=== PATIENT | female | born 1970 | race Caucasian/White ===

== ENCOUNTER → 2017-05-05 | Outpatient (REF) | payer BC | LOC: M SFHCPLAZ 12:59 | DX: Z22.321 Carrier or suspected carrier of Methicillin susceptible Staphylococcus aureus (principal) | CPT/HCPCS: 87077; 87186 ==

== ENCOUNTER 2018-02-01 08:49 | Emergency (ER) | payer BC ==
[2018-02-01] MEDS: LevoFLOXacin 500 MG TABLET PO (09:23)
== END 2018-02-01 09:23 | disposition home or self-care (01) ==
LOC: M ED 08:49
DX: J34.0 Abscess, furuncle and carbuncle of nose (principal); L03.211 Cellulitis of face; A49.01 Methicillin susceptible Staphylococcus aureus infection, unspecified site; I10 Essential (primary) hypertension; K21.9 Gastro-esophageal reflux disease without esophagitis; Z86.14 Personal history of Methicillin resistant Staphylococcus aureus infection; Z79.899 Other long term (current) drug therapy; Z79.4 Long term (current) use of insulin
CPT/HCPCS: 99283

== ENCOUNTER → 2018-02-12 | Outpatient (REF) | payer BC ==
[2018-02-12 12:09] LABS: BASO % 0.6 % (0.0-1.0); EOS # 0.3 10^3/uL (0.0-0.50); HEMATOCRIT 38.2 % (36.0-47.0); HEMOGLOBIN 13.3 g/dl (12.0-15.5); IMMATURE GRANULOCYTE % 0.3 % (0-3.0); LYMPH % 30.2 % (24.0-44.0); MEAN CORPUSCULAR HEMOGLOBIN 29.8 pg (27.0-33.0); MEAN CORPUSCULAR HGB CONC 34.8 g/dl (32.0-36.5); MEAN CORPUSCULAR VOLUME 85.5 fl (80.0-96.0); MONO # 0.5 10^3/uL (0.0-0.8); MONO % 6.9 % (0.0-5.0); NEUTROPHILS # 3.9 10^3/uL (1.8-7.7); PLATELET COUNT, AUTOMATED 230 10^3/uL (150-450); RED BLOOD COUNT 4.47 10^6/uL (4.00-5.40); RED CELL DISTRIBUTION WIDTH 12.7 % (11.5-14.5); WHITE BLOOD COUNT 6.7 10^3/uL (4.0-10.0)
[2018-02-12 12:10] LABS: C REACTIVE PROTEIN QUANTITATIV 1.24 MG/DL (0.00-0.30)
[2018-02-12 12:36] LABS: ERYTHROCYTE SEDIMENTATION RATE 13 mm/hr (0-20)
[2018-02-13 15:08] LABS: CONTROL LINE MONO RF C INT CTR LINE PRESENT; MONO REFLEX EBV COMP NEGATIVE (NEGATIVE)
[2018-02-17 00:07] LABS: EBV VIRAL CAPSID AG IgM <36.0 U/mL (0.0-35.9)
== END ==
LOC: M SFHCPLAZ 09:35
DX: L03.211 Cellulitis of face (principal); R53.83 Other fatigue; Z22.321 Carrier or suspected carrier of Methicillin susceptible Staphylococcus aureus
CPT/HCPCS: 86665

== ENCOUNTER 2018-04-03 10:39 | Day surgery (SDC) | payer BC ==
[~2018-04-03] VITALS: Ht 165.1 cm; Wt 104.3 kg
[~2018-04-03 10:39] MED LIST: ACET1TAB55 PO; CEPH500C; FAMO20TA PO; INSUHUMDS; INSUHUMDS SC; LEVA1TAB2 PO; LISI-538; LISI-538 PO; MUPI2OI; TRUL10IN; TRUL10IN SC
[2018-04-03] MEDS ORDERED: PROPOFOL 200 MG/20 ML VIAL As Ordered ONE (10:52)
[2018-04-03] MEDS ORDERED: LIDOCAINE 2% INJ 100 MG/5 ML SDV (FOR ANES.) As Ordered ONE (10:52)
--- NOTE | 2018-04-03 11:55 | ROOR ---
Patient Name: Melva Cheung Procedure Date: 04/03/2018 11:27 AM Date of : 1970 Age: 47 Room: [facility] Gender: Female Note Status: Finalized Procedure: Upper GI endoscopy Indications: Dyspepsia, Heartburn Providers: Elmer RUTLEDGE MD Referring MD: JEVON Bell Requesting Provider: Medicines: Monitored Anesthesia Care Complications: No immediate complications. Procedure: Pre-Anesthesia Assessment: - The heart rate, respiratory rate, oxygen saturations, blood pressure, adequacy of pulmonary ventilation, and response to care were monitored throughout the procedure. The Endoscope was introduced through the mouth, and advanced to the second part of duodenum. The upper GI endoscopy was accomplished without difficulty. The patient tolerated the procedure well. Findings: Non-severe esophagitis was found at the gastroesophageal junction. Biopsies were taken with a cold forceps for histology. The entire examined stomach was normal. Biopsies were taken with a cold forceps for Helicobacter pylori testing. Patchy mildly erythematous mucosa was found in the duodenal bulb. This was biopsied with a cold forceps for histology. Impression: - Mild reflux esophagitis. Biopsied. - Normal stomach. Biopsied. - Mild duodenitis. Biopsied. Recommendation: - Use Protonix (pantoprazole) 40 mg PO daily. (take in PM/~dinner) - (the script was sent to your pharmacy on file) - Telephone endoscopist for pathology results in 2 weeks. Elmer Rutledge MD Elmer RUTLEDGE MD 04/03/2018 11:54:54 AM This report has been signed electronically. Number of Addenda: 0 Note Initiated On: 04/03/2018 11:27 AM Estimated Blood Loss: Estimated blood loss: none.
--- NOTE | 2018-04-03 11:59 | ROOR ---
Patient Name: Melva Cheung Procedure Date: 04/03/2018 11:31 AM Date of : 1970 Age: 47 Room: [facility] Gender: Female Note Status: Finalized Procedure: Colonoscopy Indications: Generalized abdominal pain, Change in bowel habits, Constipation Providers: Elmer RUTLEDGE MD Referring MD: JEVON Roth Requesting Provider: Medicines: Monitored Anesthesia Care Complications: No immediate complications. Procedure: Pre-Anesthesia Assessment: - The heart rate, respiratory rate, oxygen saturations, blood pressure, adequacy of pulmonary ventilation, and response to care were monitored throughout the procedure. The Colonoscope was introduced through the anus and advanced to the terminal ileum, with identification of the appendiceal orifice and IC valve. The colonoscopy was performed without difficulty. The patient tolerated the procedure well. The quality of the bowel preparation was fair and unsatisfactory. Findings: The perianal and digital rectal examinations were normal. The colon (entire examined portion) appeared normal. The terminal ileum appeared normal. Impression: - Preparation of the colon was suboptimal/fair. - Small internal hemorrhoids. - The entire examined colon is normal. - The examined portion of the ileum was normal. - No specimens collected. Recommendation: - Repeat colonoscopy in 3 - 5 years because the bowel preparation was suboptimal. - Miralax 1 capful (17 grams) in 8 ounces of water PO daily. Elmer Rutledge MD Elmer RUTLEDGE MD 04/03/2018 11:59:08 AM This report has been signed electronically. Number of Addenda: 0 Note Initiated On: 04/03/2018 11:31 AM Estimated Blood Loss: Estimated blood loss: none.
[2018-04-03 12:31] VITALS: BP 121/67
== END 2018-04-03 12:32 | disposition home or self-care (01) ==
LOC: M OPP 10:39
PROVIDERS: ATTEND Internal Medicine Gastroenterology
DX: K64.8 Other hemorrhoids (principal); R10.84 Generalized abdominal pain; R19.4 Change in bowel habit; R10.13 Epigastric pain; K21.0 Gastro-esophageal reflux disease with esophagitis; K29.80 Duodenitis without bleeding

== ENCOUNTER → 2018-10-27 | Outpatient (REF) | payer BC ==
[2018-10-27 21:55] LABS: APPEARANCE, URINE HAZY (CLEAR); BACTERIA, URINE AUTO 1+ (NEGATIVE); BILIRUBIN, URINE AUTO NEGATIVE (NEGATIVE); BLOOD, URINE BLOOD 3+ (NEGATIVE); CALCIUM OXALATE CRYSTALS SMALL; COLOR, URINE YELLOW (YELLOW); GLUCOSE, URINE (UA) AUTO NEGATIVE (NEGATIVE); KETONE, URINE AUTO NEGATIVE (NEGATIVE); LEUKOCYTE ESTERASE, URINE AUTO TRACE (NEGATIVE); MUCUS, URINE SMALL (NEGATIVE); NITRITE, URINE AUTO NEGATIVE (NEGATIVE); PROTEIN, URINE AUTO NEGATIVE (NEGATIVE); RBC, URINE AUTO 7 /HPF (0-3); SPECIFIC GRAVITY URINE AUTO 1.024 (1.002-1.035); SQUAMOUS EPITHELIAL CELL UR AU 3 /HPF (0-6); UROBILINOGEN, URINE AUTO 0.2 mg/dL (0.0-2.0); WBC, URINE AUTO 5 /HPF (0-3)
== END ==
LOC: M LAB REF 09:25
PROVIDERS: ATTEND Physician Assistant
DX: N39.0 Urinary tract infection, site not specified (principal)

== ENCOUNTER → 2019-02-07 | Outpatient (REF) | payer BC ==
[2019-02-07 21:20] LABS: CHLAMYDIA DNA AMPLIFICATION NEGATIVE (NEGATIVE); GC DNA AMPLIFICATION NEGATIVE (NEGATIVE)
== END ==
LOC: M SFHCLERA 17:35
PROVIDERS: ATTEND Nurse Practitioner Family
DX: R81 Glycosuria (principal); B37.9 Candidiasis, unspecified

== ENCOUNTER → 2019-08-09 | Outpatient (REF) | payer BC ==
[2019-08-09 18:30] LABS: CREATININE, URINE 91.9 MG/DL; MALB URINE SIEMENS 11.1 MG/L
== END ==
LOC: M LAB REF 17:33
PROVIDERS: ATTEND Nurse Practitioner Family
DX: E11.65 Type 2 diabetes mellitus with hyperglycemia (principal)

== ENCOUNTER → 2019-08-30 | Outpatient (CLI) | payer BC | LOC: M LABSMTC 11:51 | PROVIDERS: ATTEND Family Medicine | DX: Z11.59 Encounter for screening for other viral diseases (principal); Z03.89 Encounter for observation for other suspected diseases and conditions ruled out | CPT/HCPCS: C9803; U0003 ==

== ENCOUNTER → 2020-01-13 | Outpatient (REF) | payer BC ==
[2020-01-13 13:45] LABS: FOLLICLE STIMULATING HORMONE 5.6 mIU/mL; FREE T4 1.29 NG/DL (0.76-1.46); LUTEINIZING HORMONE 4.6 mIU/mL
[2020-01-13 13:51] LABS: HCG, SERUM QUALITATIVE NEGATIVE (NEGATIVE)
== END ==
LOC: M PLALAB 09:43
PROVIDERS: ATTEND Advanced Practice Midwife
DX: N92.6 Irregular menstruation, unspecified (principal)

== ENCOUNTER → 2020-01-20 | Outpatient (CLI) | payer BC ==
--- NOTE | 2020-01-20 08:48 | REP ---
INDICATION: N92.6 IRREGULAR MENSES,LT SIDED PAIN COMPARISON: None. TECHNIQUE: Transabdominal pelvic ultrasound followed by transvaginal examination for better evaluation of the endometrium and adnexa with color Doppler evaluation of the ovaries. FINDINGS: Examination is limited by body habitus, collapsed bladder and associated technical factors. Heterogeneous retroverted uterus measures 8.2 x 4.8 x 5.0 cm. The endometrial complex measures 14 mm thickness. No discrete uterine or endometrial abnormalities are appreciated. Left ovary is not visualized. The right ovary measures 3.0 x 2.9 x 3.4 cm (RI 0.57) and includes 1.1 x 1.3 x 0.9 cm simple cyst and 1.1 x 1.5 x 1.5 cm complex paraovarian/partially exophytic right adnexal cyst. A small to moderate amount of free fluid is also identified within the pelvis/anterior cul-de-sac. IMPRESSION: 1. Heterogeneous retroverted uterus without discrete abnormality identified. 2. Complex primarily cystic lesion of the right ovary/adnexa along with small to moderate amount of pelvic free fluid. Findings are nonspecific and warrant further investigation. Based on symptomatology, follow-up contrast enhanced CT of the abdomen and pelvis or repeat ultrasound in 4-6 weeks should be considered. <Electronically signed by Albert Calvo > 01/20/20 [id number]
--- NOTE | 2020-01-20 14:01 | REP ---
INDICATION: Z12.31 SCREENING MAMMO. COMPARISON: None, baseline study. TECHNIQUE: MLO and CC views of bilateral breasts performed with tomosynthesis. The study is limited by limitations in patient mobility. FINDINGS: Mild fibroglandular tissue is present bilaterally. There is asymmetric ill-defined density visualized posteriorly and somewhat superiorly on left MLO images. Otherwise no mass or clustered microcalcifications are seen bilaterally. The Volpara volumetric breast density pattern is B. IMPRESSION: BIRADS/ACR category 0 incomplete. Asymmetric ill-defined density posterior margin of upper left breast only seen in the MLO projection. Approximate diameter of this asymmetric density is 1 cm. Recommend further imaging of left breast in the axillary CC, MLO and mL projections in order to further evaluate. Ultrasound may also be necessary. This patient's Tyrer-Cuzick lifetime breast cancer risk assessment score is 11.9%. Family history of breast cancer in maternal aunt. This mammogram was interpreted with the aid of an FDA-approved computer-aided detection system. The patient states she had a clinical breast exam in January 2020. The patient letter being requested is M0. RECOMMENDATION: Recommend additional mammographic images and ultrasound left breast <Electronically signed by Michel Muñoz > 01/20/20 [id number]
== END ==
LOC: M WHC 07:22
PROVIDERS: ATTEND Advanced Practice Midwife
DX: Z12.31 Encounter for screening mammogram for malignant neoplasm of breast (principal); N92.6 Irregular menstruation, unspecified; N85.4 Malposition of uterus; N83.202 Unspecified ovarian cyst, left side

== ENCOUNTER → 2020-02-08 | Outpatient (CLI) | payer BC ==
--- NOTE | 2020-02-08 09:52 | REP ---
INDICATION: ADDITIONAL VIEWS LT BREAST; ADDITIONAL VIEW LT BREAST. Screening mammography January 30, 2020 was BI-RADS category 0. Diagnostic imaging of the left breast recommended. COMPARISON: January 20, 2020 baseline exam. TECHNIQUE: Magnified focal spot-compression CC, true mediolateral, and MLO views are obtained. A laterally exaggerated non magnified CC view of the left breast is obtained. 3D tomography is obtained in the mediolateral projection. Targeted left breast upper outer quadrant sonography is carried out FINDINGS: Mammography imaging of the left breast show scattered fibroglandular elements. No suspicious soft tissue density is appreciated. No mass lesion is seen. No evidence of architectural distortion on 3D tomography or 2D imaging. Left breast sonography is performed in the upper outer quadrant. Fairly homogeneous fibroglandular background echotexture is seen. No mass, cyst or acoustic shadowing is appreciated. IMPRESSION: BIRADS/ACR category 1, negative left breast mammogram and sonographic findings. This patient's Tyrer-Cuzick lifetime breast cancer risk assessment score is 11.9%. This mammogram was interpreted with the aid of an FDA-approved computer-aided detection system. RECOMMENDATION: Repeat screening mammography recommended 1 year (for women over 40). The patient letter being requested is M1. <Electronically signed by Claude Fernandez > 02/08/20 [id number]
== END ==
LOC: M WHC 08:01
PROVIDERS: ATTEND Advanced Practice Midwife
DX: R92.2 Inconclusive mammogram (principal); Z80.3 Family history of malignant neoplasm of breast

== ENCOUNTER → 2020-02-09 | Outpatient (REF) | payer BC | LOC: M SFHCWAGY 13:19 | PROVIDERS: ATTEND Obstetrics & Gynecology | DX: R87.610 Atypical squamous cells of undetermined significance on cytologic smear of cervix (ASC-US) (principal) ==

== ENCOUNTER → 2020-02-16 | Outpatient (CLI) | payer BC ==
--- NOTE | 2020-02-16 09:00 | REP ---
INDICATION: N92.6 IRREGULER MENSES. COMPARISON: Comparison pelvic sonography January 20, 2020.. TECHNIQUE: Transvaginal scanning is performed. FINDINGS: Uterine dimensions are 9.9 x 4.5 x 5.2 cm. Myometrium is heterogeneous as before. Appears anteverted today. No focal uterine mass is seen. The left ovary could not be visualized due to bowel gas. Exam quality is somewhat inhibited by patient body habitus. Urinary bladder was not full of the exam time. Right ovarian dimensions are 3.2 x 2.5 x 3.2 cm. It is Doppler flow is present resistive index 0.56. There is a small complex cystic structure peripherally in the right ovary 1.1 x 1.2 x 1.1 cm similar to the prior study. It is partially cystic. No free fluid. Exam is otherwise unremarkable. IMPRESSION: 1.2 cm complex structure adjacent to the right ovary again seen. Similar to prior study. Is uncertain significance. Four to six-month follow-up pelvic sonography suggested <Electronically signed by Claude Fernandez > 02/16/20 [id number]
== END ==
LOC: M WHC 06:22
PROVIDERS: ATTEND Obstetrics & Gynecology
DX: N92.6 Irregular menstruation, unspecified (principal)

== ENCOUNTER → 2020-03-08 | Outpatient (REF) | payer BC | LOC: M SFHCWAGY 13:13 | PROVIDERS: ATTEND Obstetrics & Gynecology | DX: D06.9 Carcinoma in situ of cervix, unspecified (principal) ==

== ENCOUNTER → 2020-04-25 | Outpatient (CLI) | payer BC ==
[~2020-04-25] MED LIST changes: -LISI-538; -LISI-538 PO; +LISI20TA33; +LISI20TA33 PO
[2020-04-25 15:09] LABS: BASO # 0.1 10^3/uL (0.0-0.2); BASO % 0.7 % (0.0-1.0); EOS # 0.3 10^3/uL (0.0-0.5); EOS % 3.2 % (0.0-3.0); HEMATOCRIT 42.2 % (36.0-47.0); HEMOGLOBIN 13.8 g/dl (12.0-15.5); LYMPH # 2.5 10^3/uL (1.5-5.0); LYMPH % 30.6 % (24.0-44.0); MEAN CORPUSCULAR HEMOGLOBIN 29.3 pg (27.0-33.0); MEAN CORPUSCULAR HGB CONC 32.7 g/dl (32.0-36.5); MEAN CORPUSCULAR VOLUME 89.6 fl (80.0-96.0); MONO # 0.4 10^3/uL (0.0-0.8); NEUTROPHILS # 4.9 10^3/uL (1.5-8.5); NEUTROPHILS % 60.1 % (36.0-66.0); PLATELET COUNT, AUTOMATED 234 10^3/uL (150-450); RED BLOOD COUNT 4.71 10^6/uL (4.00-5.40); WHITE BLOOD COUNT 8.1 10^3/uL (4.0-10.0)
[2020-04-25 15:10] LABS: ALBUMIN 3.6 GM/DL (3.2-5.2); BILIRUBIN,TOTAL 0.7 MG/DL (0.2-1.0); CALCIUM LEVEL 8.9 MG/DL (8.5-10.1); CREATININE FOR GFR 1.13 MG/DL (0.55-1.30); GLOMERULAR FILTRATION RATE 54.9 (>58); POTASSIUM SERUM 4.5 MEQ/L (3.5-5.1); TOTAL PROTEIN 6.6 GM/DL (6.4-8.2)
== END ==
LOC: M WUC 11:34
PROVIDERS: ATTEND Nurse Practitioner Family
DX: Z13.220 Encounter for screening for lipoid disorders (principal); E11.9 Type 2 diabetes mellitus without complications; I10 Essential (primary) hypertension

== ENCOUNTER → 2020-05-03 | Outpatient (REF) | payer BC | LOC: M SFHCWAGY 17:40 | PROVIDERS: ATTEND Obstetrics & Gynecology | DX: N93.9 Abnormal uterine and vaginal bleeding, unspecified (principal) ==

== ENCOUNTER → 2020-05-04 | Outpatient (CLI) | payer BC ==
[2020-05-04 11:16] LABS: HEMOGLOBIN A1c 10.3 %
== END ==
LOC: M WUC 09:12
PROVIDERS: ATTEND Family Medicine
DX: Z01.818 Encounter for other preprocedural examination (principal)

== ENCOUNTER → 2020-05-24 | Outpatient (CLI) | payer BC ==
[~2020-05-24] MED LIST changes: +ATOR1TAB21
== END ==
LOC: M LABSMTC 09:58
PROVIDERS: ATTEND Anesthesiology
DX: Z01.812 Encounter for preprocedural laboratory examination (principal); Z20.822 Contact with and (suspected) exposure to COVID-19

== ENCOUNTER 2020-05-29 07:33 | Day surgery (SDC) | payer BC ==
[2020-05-29] VITALS (8 sets, daily range): BP systolic 117–132; BP diastolic 57–69
[~2020-05-29] VITALS: Ht 165.1 cm; Wt 110.6 kg
[~2020-05-29 07:33] MED LIST changes: +LIDOCAINE 1% MDV 20ML VIAL SQ PRN; +LR 1,000 ML IV ONE
[2020-05-29] MEDS ORDERED: fentaNYL 100 MCG/2 ML INJECTION (J3010) As Ordered ONE ×3 (08:08→12:10)
[2020-05-29] MEDS ORDERED: LIDOCAINE 2% 100MG/5ML SDV (FOR ANES.) As Ordered ONE (08:08)
[2020-05-29] MEDS ORDERED: MIDAZOLAM INJ 2MG/2ML VIAL (J2250 PER 1MG) As Ordered ONE (08:08)
[2020-05-29] MEDS ORDERED: propofoL 200 MG/20 ML VIAL As Ordered ONE (08:09)
[2020-05-29] MEDS ORDERED: ROCURONIUM BROMIDE 50 MG/5 ML VIAL As Ordered ONE ×2 (08:09→10:26)
[2020-05-29 08:11] LABS: HEMATOCRIT 40.4 % (36.0-47.0); HEMOGLOBIN 13.5 g/dl (12.0-15.5); MEAN CORPUSCULAR HGB CONC 33.4 g/dl (32.0-36.5); MEAN CORPUSCULAR VOLUME 86.7 fl (80.0-96.0); PLATELET COUNT, AUTOMATED 247 10^3/uL (150-450); RED BLOOD COUNT 4.66 10^6/uL (4.00-5.40)
[2020-05-29] MEDS ORDERED: ONDANSETRON 4MG/2ML VIAL As Ordered ONE ×2 (08:20→12:10)
[2020-05-29] MEDS ORDERED: dexameTHASONE 4 MG/ML 1ML VIAL (J1100 PER 1MG) As Ordered ONE (08:20)
[2020-05-29] MEDS ORDERED: ceFAZolin SOD 2 GM in IV 1 EA IV ONE (09:05)
[2020-05-29] MEDS ORDERED: BUPIVACAINE HCL 0.25% 30ML VIAL As Ordered ONE (09:33)
[2020-05-29] MEDS ORDERED: ACETAMINOPHEN 1000MG 100ML IV BTL (OFIRMEV) (J0131 PER 10MG) As Ordered ONE (10:09)
[2020-05-29] MEDS ORDERED: METOCLOPRAMIDE INJ 10MG/2ML VIAL (J2765 PER 1) As Ordered ONE (10:11)
[2020-05-29] MEDS ORDERED: PHENYLephrine 500MCG 5ML (100MCG/ML) SYRINGE As Ordered ONE (10:19)
[2020-05-29] MEDS ORDERED: SUGAMMADEX SODIUM 500 MG/5 ML VIAL (BRIDION) As Ordered ONE (10:23)
[2020-05-29] MEDS ORDERED: KETOROLAC 60MG 2ML VIAL As Ordered ONE (10:23)
--- NOTE | 2020-05-29 11:57 | ROOPDOC ---
[facility] Report Of Operation Report of Operation DATE OF PROCEDURE: 05/29/20 PREPROCEDURE DIAGNOSES: 1. [Abnormal uterine bleeding.][Fibroid uterus.] POSTPROCEDURE DIAGNOSES: 1. [Abnormal uterine bleeding.][Fibroid uterus.] PROCEDURES PERFORMED: 1. Robotic-assisted laparoscopic hysterectomy. 2. Bilateral salpingectomy. 3. Cystoscopy. SURGEON: Jamila Piedra MD POACHER WRINGER OPERATOR: ZACK Gallego ANESTHESIA: General endotracheal anesthesia. ESTIMATED BLOOD LOSS: [50] mL. INTRAVENOUS FLUIDS: [1000]mL lactated Ringer solution. URINE OUTPUT: [100]mL. PREPROCEDURE ANTIBIOTICS: [2g Ancef] OPERATIVE FINDINGS: [The patient with normal-appearing bilateral adnexa and uterus] CYSTOSCOPIC FINDING: Normal bladder mucosa, no foreign objects. Bilateral ureteral jets were observed. SPECIMEN: [Uterus, cervix, bilateral fallopian tubes] DESCRIPTION OF PROCEDURE: After informed consent was obtained and written consent was reviewed, the patient was brought to the operating room, where general endotracheal anesthesia was obtained. She was then placed in lithotomy position, was prepped and draped in a normal sterile fashion. A time-out in the operating room was then performed, identifying the patient, procedure to be performed, as well as drug allergies. A speculum was then placed, revealing the cervix. The anterior and posterior aspects of the cervix were stitched with a 0 Vicryl. The uterus was then sounded to [9]cm. A medium VCare uterine manipulator was then advanced through the cervical os for means to manipulate the uterus. The cervical cap was applied over the cervix, as well as the vaginal sleeve applied into the vagina. The speculum was removed from the patients vagina. A Duque catheter was then placed and set to gravity. Gloves were changed, and attention was turned to the patients abdomen, where a Veress needle was placed through the umbilicus. A pneumoperitoneum was then obtained with CO2 gas. The supraumbilical area was infused with 0.25% Marcaine. An incision was made i n this area, and a 8 mm trocar and sleeve was advanced through this incision. The laparoscope was then replaced, revealing intra-abdominal placement. Three additional port sites were placed, two to the left side of the patient's abdomen and one to the right. These areas was infused with 0.25% Marcaine. Each one of these areas, incisions were made, and 8 mm trocars and sleeves advanced through each one of these incisions under direct visualization. Next, the da Mejia was then docked, utilizing a camera arm and two operative arms. The patient's abdomen was then surveyed with the above-noted finding. Bilateral salpingectomies were then performed. The fallopian tubes' mesosalpinx was cauterized and ligated with hemostasis noted. Next, the uteroovarian ligaments bilateral were cauterized and ligated with good hemostasis noted. The round ligaments bilaterally were cauterized and ligated with good hemostasis noted. The anterior and posterior aspects of broad ligaments were . The anterior leaf of the broad ligament was cauterized and ligated and dissected along the bladder, creating a bladder flap. The remainder of the broad and cardinal ligaments were then cauterized and ligated with good hemostasis noted. The uterine arteries were skeletonized bilaterally and were cauterized and transected with good hemostasis noted. Anterior and posterior colpotomies were made using monopolar scissors. The uterus was then brought out through the vaginal incision. The surgical sites were inspected and noted to be hemostatic. The vaginal cuff was then closed using 2-0 V-Loc system in a running fashion. Marie was then applied over the surgical field. The pneumoperitoneum was then released. Next, the cystoscopy was then performed. Utilizing a 70-degree cystoscope, it was advanced transurethrally through the bladder. The bladder was surveyed, showing normal bladder mucosa, no foreign bodies. The bilateral ureteral jets were observed. The cystoscope was then removed. The bladder was then drained. Gloves were changed. Attention was then turned to the patients abdomen, where all four port sites were closed with 4-0 Monocryl and dressed with Dermabond. The patient was then taken out of lithotomy position and was awakened from general anesthesia and taken to recovery in stable condition. Counts were correct. Marla Ventura, my surgical specialist, played a central role in the operation. She assisted with port placement, tissue retraction and identification, as well as wound closure. JAMILA PIEDRA MD. May 29, 2020 11:57
[2020-05-29] MEDS ORDERED: fentaNYL 100 MCG/2 ML INJECTION (J3010) IV PRN (12:10)
[2020-05-29] MEDS ORDERED: oxyCODONE 5MG TAB PO PRN (12:10)
[2020-05-29] MEDS ORDERED: LR 1,000 ML IV SCH ×2 (12:10→14:30)
[2020-05-29] MEDS ORDERED: ONDANSETRON 4MG/2ML VIAL IV PRN (12:10)
[2020-05-29] MEDS ORDERED: PERCOCET 5MG/325MG TAB PO PRN (12:15)
[2020-05-29] MEDS: PROMETHAZINE INJ 25 MG/ML VIAL (J2550) IV PRN ×2 (12:40→13:31)
[2020-05-29] MEDS ORDERED: PROMETHAZINE INJ 25 MG/ML VIAL (J2550) IV PRN (15:00)
[2020-05-29] MEDS: KETOROLAC 30 MG/ML 1ML VIAL IV SCH ×2 (16:31→22:46)
[2020-05-30 02:00] VITALS: BP 132/65
[2020-05-30] MEDS: KETOROLAC 30 MG/ML 1ML VIAL IV SCH (05:44)
[2020-05-30 06:00] VITALS: BP 125/69
== END 2020-05-30 10:43 | disposition home or self-care (01) ==
LOC: EEVIPCON 07:33 → M SDC 07:33 → M MSPAV 13:55 → M SDC 05-30 10:43
PROVIDERS: ATTEND Obstetrics & Gynecology
DX: D25.1 Intramural leiomyoma of uterus (principal); D25.2 Subserosal leiomyoma of uterus; N72 Inflammatory disease of cervix uteri; E11.9 Type 2 diabetes mellitus without complications; I10 Essential (primary) hypertension; K21.9 Gastro-esophageal reflux disease without esophagitis; E78.00 Pure hypercholesterolemia, unspecified; D58.0 Hereditary spherocytosis; Z79.899 Other long term (current) drug therapy; Z79.4 Long term (current) use of insulin; Z86.14 Personal history of Methicillin resistant Staphylococcus aureus infection
CPT/HCPCS: 36415; 58571; 85027; 86850; 86900; 86901; 88307; 96361; 96374; 96376; J0131; J0690; J1885; J2250; J2370; J2405; J2765; J3010

== ENCOUNTER → 2020-08-15 | Outpatient (REF) | payer BC ==
[~2020-08-15] MED LIST changes: -LIDOCAINE 1% MDV 20ML VIAL SQ PRN; -LR 1,000 ML IV ONE
== END ==
LOC: M SFHCWAGY 16:53
PROVIDERS: ATTEND Obstetrics & Gynecology
DX: R30.0 Dysuria (principal)

== ENCOUNTER → 2020-12-04 | Outpatient (REF) | payer BC ==
[~2020-12-04] MED LIST changes: +OMEP40CA4 PO
[2020-12-04 18:10] LABS: CREATININE, URINE 75.4 MG/DL; MALB URINE SIEMENS < 5.0 MG/L; MAU/CREAT RATIO 6.6 MCG/MG (0.0-30.0)
== END ==
LOC: M LAB REF 16:59
PROVIDERS: ATTEND Internal Medicine Endocrinology, Diabetes & Metabolism
DX: E11.65 Type 2 diabetes mellitus with hyperglycemia (principal)

== ENCOUNTER 2021-02-02 13:41 | Outpatient (CLI) | payer BC ==
[~2021-02-02] VITALS: Ht 165.1 cm; Wt 105.0 kg
[~2021-02-02 13:41] MED LIST changes: +ALBUTEROL 90 MCG/ACT 8GM HFA INHALER INH PRN; +ALBUTEROL SULFATE 2.5 MG/0.5 ML INH NEB SOLN INH PRN; +EPINEPHrine INJ 1 MG/ML 1ML AMP IM PRN; +NS 1,000 ML IV SCH; +[UNRECOGNIZED DRUG - OTHER] IV ONE; +diphenhydrAMINE 50MG/ML VIAL (J1200) IV PRN; +methylPREDNISolone 125MG 2ML VIAL IV PRN
[2021-02-02] MEDS ORDERED: [UNRECOGNIZED DRUG - OTHER] IV ONE (14:00)
[2021-02-02 14:04] VITALS: BP 145/70
[2021-02-02 14:34] VITALS: BP 140/68
[2021-02-02 15:04] VITALS: BP 155/74
[2021-02-02 16:04] VITALS: BP 145/68
== END 2021-02-02 16:04 | disposition home or self-care (01) ==
LOC: M OPCLI4PR 13:41
PROVIDERS: ATTEND Family Medicine
DX: U07.1 COVID-19 (principal)

== ENCOUNTER → 2021-10-12 | Outpatient (CLI) | payer BC, OTHER ==
[~2021-10-12] MED LIST changes: -ALBUTEROL 90 MCG/ACT 8GM HFA INHALER INH PRN; -ALBUTEROL SULFATE 2.5 MG/0.5 ML INH NEB SOLN INH PRN; -EPINEPHrine INJ 1 MG/ML 1ML AMP IM PRN; -NS 1,000 ML IV SCH; -[UNRECOGNIZED DRUG - OTHER] IV ONE; -diphenhydrAMINE 50MG/ML VIAL (J1200) IV PRN; -methylPREDNISolone 125MG 2ML VIAL IV PRN
[2021-10-12 15:08] LABS: GC DNA AMPLIFICATION NEGATIVE (NEGATIVE)
== END ==
LOC: M PLAIMG 09:53
PROVIDERS: ATTEND Physician Assistant
DX: Z11.3 Encounter for screening for infections with a predominantly sexual mode of transmission (principal); N23 Unspecified renal colic; N20.0 Calculus of kidney

== ENCOUNTER → 2022-07-12 | Outpatient (CLI) | payer OTHER, BC ==
[2022-07-12 22:26] LABS: HEMATOCRIT 38.6 % (36.0-47.0); HEMOGLOBIN 12.7 g/dl (12.0-15.5); MEAN CORPUSCULAR HEMOGLOBIN 29.4 pg (27.0-33.0); MEAN CORPUSCULAR HGB CONC 32.9 g/dl (32.0-36.5); MEAN CORPUSCULAR VOLUME 89.4 fl (80.0-96.0); PLATELET COUNT, AUTOMATED 265 10^3/uL (150-450); RED BLOOD COUNT 4.32 10^6/uL (4.00-5.40); WHITE BLOOD COUNT 9.7 10^3/uL (4.0-10.0)
[2022-07-12 22:56] LABS: ALBUMIN 3.6 G/DL (3.2-5.2); BILIRUBIN,TOTAL 1.3 MG/DL (0.3-1.2); CALCIUM LEVEL 8.7 MG/DL (8.5-10.1); CHOLESTEROL RISK RATIO 3.89 (<5); CREATININE FOR GFR 1.04 MG/DL (0.55-1.30); HDL CHOLESTEROL 44.9 MG/DL (>40); LDL CHOLESTEROL 96.3 MG/DL (<100); NON-HDL-C 130.1 MG/DL; POTASSIUM SERUM 4.2 MMOL/L (3.5-5.1); TOTAL PROTEIN 6.3 G/DL (5.7-8.2)
[2022-07-12 23:13] LABS: HEMOGLOBIN A1c 6.6 % (4.0-6.0)
== END ==
LOC: M WUC 15:02
PROVIDERS: ATTEND Internal Medicine
DX: E78.5 Hyperlipidemia, unspecified (principal); E11.9 Type 2 diabetes mellitus without complications; D58.0 Hereditary spherocytosis; M25.551 Pain in right hip

== ENCOUNTER → 2023-05-13 | Outpatient (CLI) | payer BC ==
[2023-05-13 09:44] LABS: BASO % 0.7 % (0.0-1.0); EOS # 0.2 10^3/uL (0.0-0.5); EOS % 3.5 % (0.0-3.0); HEMATOCRIT 39.5 % (36.0-47.0); HEMOGLOBIN 13.5 g/dl (12.0-15.5); LYMPH # 2.6 10^3/uL (1.5-5.0); LYMPH % 42.7 % (24.0-44.0); MEAN CORPUSCULAR HEMOGLOBIN 29.3 pg (27.0-33.0); MEAN CORPUSCULAR HGB CONC 34.2 g/dl (32.0-36.5); MEAN CORPUSCULAR VOLUME 85.7 fl (80.0-96.0); MONO # 0.4 10^3/uL (0.0-0.8); MONO % 6.8 % (2.0-8.0); NEUTROPHILS # 2.8 10^3/uL (1.5-8.5); NEUTROPHILS % 46.1 % (36.0-66.0); PLATELET COUNT, AUTOMATED 238 10^3/uL (150-450); RED BLOOD COUNT 4.61 10^6/uL (4.00-5.40)
[2023-05-13 09:54] LABS: HEMOGLOBIN A1c 7.5 % (4.0-6.0)
[2023-05-13 10:12] LABS: ALBUMIN 3.7 G/DL (3.2-5.2); ALKALINE PHOSPHATASE 62 U/L (46-116); ALT/SGPT 16 U/L (7.0-40); AST/SGOT 17 U/L (<34); BILIRUBIN,TOTAL 1.1 MG/DL (0.3-1.2); BLOOD UREA NITROGEN 23 MG/DL (9-23); CALCIUM LEVEL 9.2 MG/DL (8.5-10.1); CARBON DIOXIDE LEVEL 29 MMOL/L (20-31); CHLORIDE LEVEL 104 MMOL/L (98-107); CHOLESTEROL LEVEL 195 MG/DL (<200); CHOLESTEROL RISK RATIO 3.55 (<5); CREATININE FOR GFR 0.27 MG/DL (0.55-1.30); GLOMERULAR FILTRATION RATE > 60.0 (>51); GLUCOSE, FASTING 247 MG/DL (60-100); HDL CHOLESTEROL 54.9 MG/DL (>40); LDL CHOLESTEROL 121.5 MG/DL (<100); NON-HDL-C 140.1 MG/DL; POTASSIUM SERUM 4.1 MMOL/L (3.5-5.1); SODIUM LEVEL 138 MMOL/L (136-145); TOTAL PROTEIN 6.7 G/DL (5.7-8.2); TRIGLYCERIDES LEVEL 93 MG/DL (<150)
== END ==
LOC: M WUC 08:13
PROVIDERS: ATTEND Internal Medicine
DX: D58.0 Hereditary spherocytosis (principal); E78.5 Hyperlipidemia, unspecified; E11.9 Type 2 diabetes mellitus without complications

== ENCOUNTER → 2023-08-05 | Outpatient (REF) | payer OTHER | LOC: M PLALAB 13:10 | PROVIDERS: ATTEND Obstetrics & Gynecology | DX: N89.8 Other specified noninflammatory disorders of vagina (principal) ==

== ENCOUNTER → 2023-08-05 | Outpatient (REF) | payer BC, OTHER ==
[2023-08-05 12:45] LABS: APPEARANCE, URINE CLOUDY (CLEAR); BACTERIA, URINE AUTO 2+ (NEGATIVE); BILIRUBIN, URINE AUTO NEGATIVE (NEGATIVE); BLOOD, URINE BLOOD NEGATIVE (NEGATIVE); COLOR, URINE AMBER (YELLOW); GLUCOSE, URINE (UA) AUTO NEGATIVE (NEGATIVE); KETONE, URINE AUTO NEGATIVE (NEGATIVE); LEUKOCYTE ESTERASE, URINE AUTO 1+ (NEGATIVE); MUCUS, URINE SMALL (NEGATIVE); NITRITE, URINE AUTO POSITIVE (NEGATIVE); PROTEIN, URINE AUTO NEGATIVE (NEGATIVE); RBC, URINE AUTO 3 /HPF (0-3); SPECIFIC GRAVITY URINE AUTO 1.023 (1.002-1.035); SQUAMOUS EPITHELIAL CELL UR AU 2 /HPF (0-6); WBC, URINE AUTO 20 /HPF (0-3)
== END ==
LOC: M SFHCWAGY 11:33
PROVIDERS: ATTEND Obstetrics & Gynecology
DX: N89.8 Other specified noninflammatory disorders of vagina (principal)

== ENCOUNTER → 2023-08-27 | Outpatient (CLI) | payer OTHER | LOC: M WHC 07:10 | PROVIDERS: ATTEND Obstetrics & Gynecology | DX: R10.2 Pelvic and perineal pain (principal) ==

== ENCOUNTER → 2024-07-20 | Outpatient (REF) | payer OTHER ==
[2024-07-20 13:23] LABS: APPEARANCE, URINE HAZY (CLEAR); BACTERIA, URINE AUTO NEGATIVE (NEGATIVE); BILIRUBIN, URINE AUTO NEGATIVE (NEGATIVE); BLOOD, URINE BLOOD NEGATIVE (NEGATIVE); COLOR, URINE YELLOW (YELLOW); GLUCOSE, URINE (UA) AUTO 3+ mg/dL (NEGATIVE); KETONE, URINE AUTO NEGATIVE (NEGATIVE); LEUKOCYTE ESTERASE, URINE AUTO NEGATIVE (NEGATIVE); NITRITE, URINE AUTO NEGATIVE (NEGATIVE); PROTEIN, URINE AUTO NEGATIVE (NEGATIVE); RBC, URINE AUTO 1 /HPF (0-3); SPECIFIC GRAVITY URINE AUTO 1.032 (1.002-1.035); SQUAMOUS EPITHELIAL CELL UR AU 2 /HPF (0-6); UROBILINOGEN, URINE AUTO 0.2 mg/dL (0.0-2.0); WBC, URINE AUTO 1 /HPF (0-3)
== END ==
LOC: M SFHCWAGY 12:56
PROVIDERS: ATTEND Advanced Practice Midwife
DX: N89.8 Other specified noninflammatory disorders of vagina (principal)

== ENCOUNTER → 2025-02-09 | Outpatient (REF) | payer OTHER | LOC: M SFHCWAGY 10:33 | PROVIDERS: ATTEND Advanced Practice Midwife | DX: Z12.4 Encounter for screening for malignant neoplasm of cervix (principal) | CPT/HCPCS: 87624; G0123 ==